=== PATIENT | male | born 1955 | race Caucasian/White ===

== ENCOUNTER 2019-11-08 20:39 | Emergency (ER) | payer MEDICARE ==
[~2019-11-08] VITALS: Ht 172.7 cm; Wt 100.0 kg
[~2019-11-08 20:39] MED LIST: HYDR-3240 PO
[2019-11-08 21:39] LABS: ALANINE AMINOTRANSFERASE 32 U/L (12-78); ALBUMIN 3.4 g/dL (3.4-5.0); ANION GAP 7 mmol/L (5-15); CALCIUM 8.9 mg/dL (8.5-10.1); CHLORIDE 104 mmol/L (98-107); CREATININE 1.16 mg/dL (0.7-1.3)
[2019-11-08 21:40] LABS: BASOPHILS # (AUTO) 0.05 x10^3/uL (0-0.1); BASOPHILS % (AUTO) 0 % (0-1); EOSINOPHILS % (AUTO) 0 % (1-7); LYMPHOCYTES # (AUTO) 0.78 x10^3/uL (1-3.4); LYMPHOCYTES % (AUTO) 6 % (22-44); MD NO; MEAN CORPUSCULAR HEMOGLOBIN 30.5 pg (27.5-34.5); MEAN CORPUSCULAR HGB CONC 32.9 g/dL (33.2-36.2); MEAN CORPUSCULAR VOLUME 92.7 fL (81-97); MEAN PLATELET VOLUME 7.3 fL (7.4-10.4); MONOCYTES % (AUTO) 4 % (2-9); NEUTROPHILS # (AUTO) 11.64 x10^3/uL (1.8-6.8); NEUTROPHILS % (AUTO) 90 % (42-75); PLATELET COUNT 221 x10^3/uL (130-400); RED BLOOD COUNT 5.25 x10^6/uL (4.38-5.82); RED CELL DISTRIBUTION WIDTH 14.6 % (9.4-14.8)
[2019-11-08 21:41] LABS: ALKALINE PHOSPHATASE 74 U/L (45-117); BILIRUBIN,TOTAL 1.9 mg/dL (0.2-1.0); TOTAL PROTEIN 8.2 g/dL (6.4-8.2)
--- NOTE | 2019-11-08 21:49 | NUR ---
PT AMBULATORY TO THE BATHROOM WITH SHUFFLING GAIT (BASELINE) URINE TUBED TO LAB
[2019-11-08 21:50] LABS: CULTURE INDICATED? YES; MICROSCOPIC INDICATED
--- NOTE | 2019-11-09 00:04 | NUR ---
BREAK RN: PT RESTING ON GURNEY, DENIES NEEDS, DISCUSSED POC, PT VERBALIZED UNDERSTANDING, CALL LIGHT WITHIN REACH. AWAITING CT RESULT
[2019-11-09 00:05] VITALS: BP 105/65
--- NOTE | 2019-11-09 00:17 | NUR ---
CT CALLED AND STATED THAT THE CT IS BEING READ AT THIS TIME
[2019-11-09] MEDS ORDERED: CEFDINIR 300 MG CAPSULE PO ONE (00:30)
[2019-11-09] MEDS ORDERED: metroNIDAZOLE 500 MG TABLET PO ONE (00:30)
[2019-11-09] MEDS ORDERED: metroNIDAZOLE 500 MG TABLET ONE (00:31)
[2019-11-09] MEDS ORDERED: CEFDINIR 300 MG CAPSULE ONE (00:31)
== END 2019-11-09 00:59 | disposition home or self-care (01) ==
LOC: ED 21:26
DX: R10.9 Unspecified abdominal pain (principal); R32 Unspecified urinary incontinence; I10 Essential (primary) hypertension; E78.5 Hyperlipidemia, unspecified; Z87.891 Personal history of nicotine dependence; Z90.49 Acquired absence of other specified parts of digestive tract
CPT/HCPCS: 36415; 74176; 80053; 81001; 83690; 85025; 87077; 87086; 87186; 99284

== ENCOUNTER 2019-11-09 21:14 | Emergency (ER) | payer MEDICARE ==
[~2019-11-09] VITALS: Ht 172.7 cm; Wt 106.0 kg
[2019-11-09 21:17] VITALS: BP 117/79
[2019-11-09] MEDS ORDERED: SODIUM CHLORIDE 0.9% 1,000ML IVBOLUS ONE (21:30)
[2019-11-09] MEDS ORDERED: ACETAMINOPHEN 500 MG TABLET PO ONE (21:30)
[2019-11-09] MEDS ORDERED: SODIUM CHLORIDE FLUSH 10ML SYR IVF ONE (21:30)
--- NOTE | 2019-11-09 21:44 | NUR ---
THIS IS A 64 YO MALE COMING IN FOR HIGH TEMPERATURE. PATIENT TEMP IN TRIAGE WAS 103. PATIENT WAS SEEN HERE LAST NIGHT AND WAS DIAGNOSED WITH DIVERTICULITIS. PATIENT WAS SENT HOME WITH RX OF FLAGYL AND CEFDINIR. PATIENT IS CURRENTLY C/O MILD LOWER LEFT FLANK PAIN. PATIENT MEDICATED AT HOME WITH ASPIRIN, ONE DOSE AT 1600, ONE AT 2000. PATIENT PLACED ON CONTINUOUS SPO2 AT 98% ON RA, CYCLE BP Q1HR. CALL LIGHT IN REACH, DENIES FURTHER NEEDS AT THIS TIME.
[2019-11-09 21:45] LABS: MEAN CORPUSCULAR HEMOGLOBIN 30.9 pg (27.5-34.5); MEAN CORPUSCULAR HGB CONC 33.5 g/dL (33.2-36.2); MEAN CORPUSCULAR VOLUME 92.5 fL (81-97); MEAN PLATELET VOLUME 7.1 fL (7.4-10.4); PLATELET COUNT 204 x10^3/uL (130-400); RED BLOOD COUNT 5.06 x10^6/uL (4.38-5.82); RED CELL DISTRIBUTION WIDTH 14.6 % (9.4-14.8)
[2019-11-09] MEDS ORDERED: ACETAMINOPHEN 500 MG TABLET ONE (21:48)
[2019-11-09 21:58] LABS: ALANINE AMINOTRANSFERASE 30 U/L (12-78); ALBUMIN 3.3 g/dL (3.4-5.0); ANION GAP 7 mmol/L (5-15); CHLORIDE 104 mmol/L (98-107); CREATININE 1.15 mg/dL (0.7-1.3)
[2019-11-09 22:00] LABS: ALKALINE PHOSPHATASE 67 U/L (45-117); BILIRUBIN,TOTAL 1.1 mg/dL (0.2-1.0); TOTAL PROTEIN 7.9 g/dL (6.4-8.2)
--- NOTE | 2019-11-09 22:09 | NUR ---
PATIENT MEDICATED PER EMAR, TOLERATED WELL. DENIES FURTHER NEEDS AT THIS TIME. CALL LIGHT IN REACH, URINAL AT BEDSIDE.
[2019-11-09 22:16] LABS: BASOPHILS # (AUTO) 0.02 x10^3/uL (0-0.1); BASOPHILS % (AUTO) 0 % (0-1); EOSINOPHILS # (AUTO) 0.01 x10^3/uL (0-0.4); EOSINOPHILS % (AUTO) 0 % (1-7); LYMPHOCYTES # (AUTO) 1.32 x10^3/uL (1-3.4); LYMPHOCYTES % (AUTO) 11 % (22-44); MD SCAN; MONOCYTES # (AUTO) 1.88 x10^3/uL (0.2-0.8); MONOCYTES % (AUTO) 16 % (2-9); NEUTROPHILS % (AUTO) 72 % (42-75)
[2019-11-09 22:21] LABS: RAPID INFLUENZA A Negative (Negative); RAPID INFLUENZA B Negative (Negative)
--- NOTE | 2019-11-09 23:17 | NUR ---
TASK RN: PT REPORTS 'FEELING MUCH BETTER' SINCE ARRIVAL. DC EDUCATION PROVIDED, PT DEMONSTRATES UNDERSTANDING. PT TRANSFERED SELF TO WHEELCHAIR AT BEDSIDE. WHEELED TO DC WITH RN AND FRIEND. FRIEND TO TRANSPORT PT HOME.
== END 2019-11-09 23:20 | disposition home or self-care (01) ==
LOC: ED 21:46
DX: R50.9 Fever, unspecified (principal); Z90.49 Acquired absence of other specified parts of digestive tract
CPT/HCPCS: 36415; 80053; 83605; 84145; 85025; 87040; 87400; 99283; J7030

== ENCOUNTER 2020-01-03 10:24 | Emergency (ER) | payer MEDICARE ==
[~2020-01-03] VITALS: Ht 172.7 cm; Wt 101.2 kg
--- NOTE | 2020-01-03 10:52 | NUR ---
first contact with pt. pt C/O: "My pulse rate got over 100 and my blood pressure was 148/93, I think something is going on. I have burning in my urine, I think I have my diverticulitis back." Pt denies cp, sob, n/v/d, diaphoresis, or syncope. nsr rate 70-80's on monitoring tech at this time. pt's aox4. resps even and unlabored. all monitors in place. call light within reach.
--- NOTE | 2020-01-03 11:29 | NUR ---
pt amb to br with steady gait. ua cup given.
--- NOTE | 2020-01-03 11:43 | NUR ---
pt provided urine sample. ua sent.
[2020-01-03 12:08] LABS: MICROSCOPIC INDICATED
[2020-01-03 12:11] LABS: CULTURE INDICATED? YES
[2020-01-03 12:50] VITALS: BP 107/59
== END 2020-01-03 12:52 | disposition home or self-care (01) ==
LOC: ED 11:37
DX: N30.00 Acute cystitis without hematuria (principal); I10 Essential (primary) hypertension; Z88.2 Allergy status to sulfonamides; Z88.0 Allergy status to penicillin; Z90.49 Acquired absence of other specified parts of digestive tract
CPT/HCPCS: 81001; 87086; 87186; 99283

== ENCOUNTER 2020-01-09 10:11 | Emergency (ER) | payer MEDICARE ==
[~2020-01-09] VITALS: Ht 172.7 cm; Wt 94.5 kg
[2020-01-09] MEDS ORDERED: LISI40TA PO (10:50)
[2020-01-09] MEDS ORDERED: BACL20TA PO (10:50)
[2020-01-09] MEDS ORDERED: ATOR10TA9 PO (10:50)
--- NOTE | 2020-01-09 10:53 | NUR ---
Break RN note: Pt c/o L low back/flank pain x1 week, diagnosed Saturday with a UTI and has been taking Cefdinir but has not had sx improvement. Pt also states had diverticulitis x3 weeks ago and states the pain is similar. Pt resting in bed, NADN, rates pain at 3/10 currently.
[2020-01-09] MEDS ORDERED: SODIUM CHLORIDE 0.9% 1,000 ML IV ONE (11:03)
--- NOTE | 2020-01-09 11:23 | NUR ---
PIV STARTED, LABS DRAWN. 1L NS STARTED.
[2020-01-09] MEDS ORDERED: SODIUM CHLORIDE FLUSH 10ML SYR IVF ONE (11:30)
--- NOTE | 2020-01-09 11:32 | NUR ---
URINE COLLECTED AND WALKED TO LAB.
[2020-01-09 11:36] LABS: ALBUMIN 3.8 g/dL (3.4-5.0); ANION GAP 6 mmol/L (5-15); CALCIUM 9.3 mg/dL (8.5-10.1); CHLORIDE 102 mmol/L (98-107); CREATININE 1.16 mg/dL (0.7-1.3)
[2020-01-09 11:42] LABS: BASOPHILS # (AUTO) 0.08 x10^3/uL (0-0.1); BASOPHILS % (AUTO) 1 % (0-1); EOSINOPHILS # (AUTO) 0.07 x10^3/uL (0-0.4); EOSINOPHILS % (AUTO) 1 % (1-7); LYMPHOCYTES # (AUTO) 1.61 x10^3/uL (1-3.4); LYMPHOCYTES % (AUTO) 15 % (22-44); MD NO; MEAN CORPUSCULAR HEMOGLOBIN 30.1 pg (27.5-34.5); MEAN CORPUSCULAR HGB CONC 33.2 g/dL (33.2-36.2); MEAN CORPUSCULAR VOLUME 90.7 fL (81-97); MEAN PLATELET VOLUME 7.5 fL (7.4-10.4); MONOCYTES % (AUTO) 10 % (2-9); NEUTROPHILS % (AUTO) 73 % (42-75); PLATELET COUNT 259 x10^3/uL (130-400); RED BLOOD COUNT 5.57 x10^6/uL (4.38-5.82); RED CELL DISTRIBUTION WIDTH 14.4 % (9.4-14.8)
[2020-01-09 11:54] LABS: CULTURE INDICATED? YES; MICROSCOPIC INDICATED
--- NOTE | 2020-01-09 12:29 | NUR ---
PT TO RAD.
[2020-01-09] MEDS ORDERED: OMNIPAQUE 350 MG/ML, 100ML BOTTLE ONE (12:55)
--- NOTE | 2020-01-09 13:34 | NUR ---
Break RN note: Provider (Geno URENA) at bedside to discuss POC with pt.
[2020-01-09] MEDS ORDERED: KETOROLAC 30 MG/1 ML IVPush ONE (14:00)
[2020-01-09] MEDS ORDERED: KETOROLAC 30 MG/1 ML ONE (14:03)
[2020-01-09] MEDS ORDERED: TAMSULOSIN 0.4 MG CAP.ER.24H ONE (14:05)
--- NOTE | 2020-01-09 14:22 | NUR ---
PT LAYING ON GURNEY, C/O 02/01 BACK PAIN WHEN LAYING STILL. 09/03 WITH ANY MOVEMENT. PT MEDICATED ORDERED. PT VOIDED APPROX 200MLS URINE PRIOR TO BEING MEDICATED. DISCUSSED WITH PT, PLACING GOMEZ TO DRAIN BLADDER. THEN CATH TO BE REMOVED. PT ASKING IF CATHETER CAN STAY IN PLACE. DISCUSSED WITH DR LANZA. "CAN BE CONVERTED TO LEG BAG IF PT WOULD LIKE" FAMILY AT BEDSIDE.
[2020-01-09] MEDS ORDERED: TAMSULOSIN 0.4 MG CAP.ER.24H PO ONE (14:30)
--- NOTE | 2020-01-09 15:05 | NUR ---
AFTER UNSUCCESSFUL ATTEMPT TO PLACE GOMEZ CATH COUDE ORDERED AT 1438.
[2020-01-09] MEDS ORDERED: LIDOCAINE 2%,20 ML JEL.PF.APP MM ONE (15:49)
[2020-01-09 16:10] VITALS: BP 112/68
--- NOTE | 2020-01-09 16:12 | NUR ---
GOMEZ CATH PLACED.
--- NOTE | 2020-01-09 16:53 | NUR ---
Patient given discharge instructions and they have confirmed that they understand the instructions. Patient wheeled out in wheelchair.
== END 2020-01-09 19:43 | disposition home or self-care (01) ==
LOC: ED 13:14
DX: R33.9 Retention of urine, unspecified (principal); M54.9 Dorsalgia, unspecified; I10 Essential (primary) hypertension; Z87.891 Personal history of nicotine dependence
CPT/HCPCS: 36415; 51702; 74170; 80048; 81001; 82040; 85025; 87086; 87186; 96374; 99285; J1885; J7030; Q9967; 96361